=== PATIENT | female | born 1970 | race African-American/Black ===

== ENCOUNTER 2016-07-02 16:33 | Emergency (ER) | payer MEDICARE, MEDICAID ==
[~2016-07-02] VITALS: Ht 170.2 cm; Wt 154.0 kg
[2016-07-02 16:35] VITALS: BP 123/83
[2016-07-02] MEDS ORDERED: ACETAMINOPHEN 500 MG TABLET PO ONE (17:15)
== END 2016-07-02 18:31 | disposition left against medical advice (07) ==
LOC: EMS 16:35
DX: S93.401A Sprain of unspecified ligament of right ankle, initial encounter (principal); X58.XXXA Exposure to other specified factors, initial encounter; Y93.89 Activity, other specified; Y92.89 Other specified places as the place of occurrence of the external cause; Y99.8 Other external cause status
CPT/HCPCS: 99284